=== PATIENT | female | born 1960 | race Caucasian/White ===

== ENCOUNTER 2023-12-22 11:03 | Inpatient (IN) | payer OTHER ==
[2023-12-22] VITALS (24 sets, daily range): BP systolic 99–139; BP diastolic 73–112
[~2023-12-22] VITALS: Ht 170.2 cm; Wt 93.5 kg
[2023-12-22 11:49] LABS: BASOPHILS ABSOLUTE AUTO 0.06 K/mm3 (0.00-0.23); BASOPHILS PERCENT AUTO 1 % (0-2); EOSINOPHILS ABSOLUTE AUTO 0.13 K/mm3 (0.00-0.68); EOSINOPHILS PERCENT AUTO 2 % (0-6); Hematocrit 42.9 % (33.0-51.0); Hemoglobin 15.2 g/dL (11.5-16.0); IMMATURE GRAN ABSOLUTE AUTO 0.02 K/mm3 (0.00-0.10); IMMATURE GRAN PERCENT AUTO 0 % (0-1); LYMPHOCYTES ABSOLUTE AUTO 1.93 K/mm3 (0.84-5.20); LYMPHOCYTES PERCENT AUTO 25 % (21-46); MONOCYTES ABSOLUTE AUTO 0.57 K/mm3 (0.16-1.47); MONOCYTES PERCENT AUTO 7 % (4-13); Mean Corpuscular HGB 32.3 pg (26.0-34.0); Mean Corpuscular HGB Conc 35.4 g/dL (31.5-36.5); Mean Corpuscular Volume 91 fL (80-100); Mean Platelet Volume 10.8 fL (9.1-12.4); NEUTROPHILS ABSOLUTE AUTO 5.17 K/mm3 (1.96-9.15); NEUTROPHILS PERCENT AUTO 66 % (41-73); Platelet Count 190 K/mm3 (150-400); RDW Coefficient Variation 12.1 % (11.7-14.2); RDW Standard Deviation 39.7 fL (35.1-46.3); Red Blood Cell Count 4.71 M/mm3 (3.80-5.20); White Blood Cell Count 7.88 K/mm3 (4.00-11.30)
[2023-12-22 12:19] LABS: Albumin, Blood 4.2 g/dL (3.4-5.0); Albumin/Globulin Ratio 1.2 (0.8-1.8); Bilirubin, Total 1.3 mg/dL (0.1-1.0); Bun/Creatinine Ratio 23.3 (12.0-20.0); Calcium, Blood 9.4 mg/dL (8.5-10.1); Creatinine, Blood 0.9 mg/dL (0.40-1.00); Globulin, Blood 3.5 g/dL (2.2-4.0); Potassium, Blood 3.5 mmol/L (3.5-5.5); Total Protein, Blood 7.7 g/dL (6.4-8.2)
[2023-12-22 13:45] LABS: International Normalized Ratio 1.07; Prothrombin Time Results 11.4 Sec (9.7-11.5)
[2023-12-22 14:10] LABS: Anti-Xa UFH, PHA Monitoring <0.10 IU/mL
[2023-12-22] MEDS ORDERED: AMPDEX30CR (14:40)
[2023-12-22] MEDS ORDERED: ACYC400 PO (14:40)
[2023-12-22] MEDS ORDERED: LISI20 PO (14:40)
[2023-12-22] MEDS ORDERED: Crestor40 MG PO (14:41)
[2023-12-22] MEDS ORDERED: Heparin Sodium 10,000 Units/ML 1ML MDV IV ONE (15:00)
[2023-12-22] MEDS ORDERED: Heparin Sodium,Porcine/0.5 NS 500 ML IV SCH (15:00)
[2023-12-22] MEDS ORDERED: Acetaminophen 500 MG Tab PO PRN (15:25)
[2023-12-22] MEDS ORDERED: FLU VACC TS2024-25(6MOS UP)/PF 45 MCG/0.5 ML SYRINGE IM PRN (15:25)
[2023-12-22] MEDS ORDERED: Polyethylene Glycol 3350 17 gm PO PRN (15:25)
[2023-12-22] MEDS ORDERED: Benzocaine Oral Spray 0.5ML UD ONE (17:19)
--- NOTE | 2023-12-22 17:58 | NUR ---
PT ARRIVAL... PT ARRIVED TO THE UNIT AT 1720, PT IS A&Ox4. PT'S VS STABLE AT THIS TIME SHE IS IN SR/ST 90'S-100'S BP STABLE WITH MAPS>65. L/S CLEAR AND DIM T/O ON RA WITH O2 SATS>90%. PT DENIES CHEST PAIN/PRESSURE N/V OR SOB. NO SWELLING OR EDEMA IS NOTED ON THIS ASSESSMENT. PLANS FOR BEDSIDE ANNETTE WITH ANS. CONSULTING PRACTICE DIRECTOR AND [employer] CONSULTANT AT THE BEDSIDE TO ASSESS THE PT. WILL CONTINUE TO MONITOR.
[2023-12-22] MEDS ORDERED: Lidocaine HCl 4% 5 ML SDA XX ONE (18:05)
[2023-12-22] MEDS ORDERED: NS 500 ML IV ONE ×2 (18:07→18:10)
[2023-12-22 20:22] LABS: Influenza A, PCR NEGATIVE (NEGATIVE); Influenza B, PCR NEGATIVE (NEGATIVE); Resp Syncytial Virus, PCR NEGATIVE (NEGATIVE); SARS-Cov-2 (COVID-19) PCR, MMC NEGATIVE (NEGATIVE)
[2023-12-22 20:32] LABS: BASOPHILS ABSOLUTE AUTO 0.05 K/mm3 (0.00-0.23); BASOPHILS PERCENT AUTO 1 % (0-2); EOSINOPHILS ABSOLUTE AUTO 0.06 K/mm3 (0.00-0.68); EOSINOPHILS PERCENT AUTO 1 % (0-6); Hematocrit 39.9 % (33.0-51.0); Hemoglobin 14.6 g/dL (11.5-16.0); IMMATURE GRAN ABSOLUTE AUTO 0.02 K/mm3 (0.00-0.10); IMMATURE GRAN PERCENT AUTO 0 % (0-1); LYMPHOCYTES ABSOLUTE AUTO 1.46 K/mm3 (0.84-5.20); LYMPHOCYTES PERCENT AUTO 18 % (21-46); MONOCYTES ABSOLUTE AUTO 0.33 K/mm3 (0.16-1.47); MONOCYTES PERCENT AUTO 4 % (4-13); Mean Corpuscular HGB Conc 36.6 g/dL (31.5-36.5); Mean Corpuscular Volume 90 fL (80-100); Mean Platelet Volume 10.6 fL (9.1-12.4); NEUTROPHILS PERCENT AUTO 77 % (41-73); Platelet Count 157 K/mm3 (150-400); RDW Coefficient Variation 12.2 % (11.7-14.2); RDW Standard Deviation 39.4 fL (35.1-46.3); Red Blood Cell Count 4.43 M/mm3 (3.80-5.20); White Blood Cell Count 8.22 K/mm3 (4.00-11.30)
[2023-12-22 20:55] LABS: Albumin, Blood 3.5 g/dL (3.4-5.0); Albumin/Globulin Ratio 1.1 (0.8-1.8); Bun/Creatinine Ratio 23.9 (12.0-20.0); Calcium, Blood 9.1 mg/dL (8.5-10.1); Creatinine, Blood 0.71 mg/dL (0.40-1.00); Globulin, Blood 3.2 g/dL (2.2-4.0); Magnesium, Blood 1.8 mg/dL (1.6-2.4); Phosphorus, Blood 2.8 mg/dL (2.5-4.9); Potassium, Blood 3.5 mmol/L (3.5-5.5); Total Protein, Blood 6.7 g/dL (6.4-8.2)
[2023-12-22] MEDS ORDERED: Docusate Sodium/Senna 1 Tab PO SCH (21:00)
[2023-12-22 21:48] LABS: Source, Urine Foley catheter
[2023-12-22] MEDS ORDERED: Etomidate 2MG / ML 10ML Vial XX ONE (21:51)
[2023-12-22] MEDS ORDERED: Propofol 10mg/ml 20 ml Vial (Procedural) IV ONE (21:51)
[2023-12-22] MEDS ORDERED: Midazolam HCl 1MG / ML 2ML Vial XX ONE (21:51)
[2023-12-22 21:52] LABS: Bilirubin, Urine Neg (Neg); Blood, Urine 1+ (Neg); Glucose Qualitative, Urine 3+ (Neg); Ketones, Urine 4+ (Neg); Leukocyte Esterase, Urine 1+ (Neg); Nitrite, Urine Neg (Neg); Protein, Urine 2+ (Neg); Urobilinogen, Urine 2+ (Normal)
--- NOTE | 2023-12-22 22:00 | NUR ---
ASSUMED CARE AT 1900 ANNETTE COMPLETED BEFORE SHIFT CHANGE. PT IS A/O X4 AND IN HIGH SPIRITS FOR THE CURRENT SITUATION; SHE HAS BEEN INFORMING FAMILY OF HER TRANSFER UP TO [place]. NO C/O DYSPNEA OR CHEST PAIN. SHE WAS PLACED ON 2L NC D/T SPO2 READING 88-89%; NOW SPO2 90-95%. AFEBRILE. NSR WITH RATE 90'S. SBP 110-130'S. TOLERATING SIPS OF WATER AND BROTH, NO C/O N/V. [place] PLACED AND DRAINING TO GRAVITY. HEPARIN INFUSING AT 18UNITS/KG/HR. SEE SHIFT ASSESSMENT FOR FULL ASSESSMENT. PT SON ISI UPDATED ABOUT PT CURRENT SITUATION. HE IS FLYING TO [place] NOW. HE IS TEARFUL AND ANXIOUS ON THE PHONE BUT APPRECIATIVE TO STAFF. DINAH NUMBER [phone].
[2023-12-22 22:07] LABS: Appearance, Urine Hazy (Clear); Color, Urine Yellow (P-Yellow)
[2023-12-22 22:10] LABS: Bacteria Mod /hpf; Red Blood Cells, Urine 0-2 /hpf (0-2); Squamous Epithelial Cells Mod /hpf (Few)
[2023-12-22] MEDS ORDERED: Mag Sulfate 1 GM/D5% 100ML 100 ML IV STA (22:12)
[2023-12-22] MEDS ORDERED: Potassium Chl 20MEQ/Water100ML 100 ML IV ONE (22:15)
[2023-12-22] MEDS ORDERED: Dose Adjust by Pharmacy XX STA (23:11)
[2023-12-23] VITALS (13 sets, daily range): BP systolic 92–139; BP diastolic 68–98
[2023-12-23] MEDS ORDERED: Insulin Regular 100 UNIT/ML 10ML Vial SC SCH
--- NOTE | 2023-12-23 02:50 | NUR ---
TRANSFER TO [facility] PT LEFT WITH [facility] ([facility]) AT 0237. ALL PERSONAL BELONGINGS TAKEN INCLUDING HER PURSE, CLOTHS, AND CELL PHONE. HEPARIN INFUSING AT 18U/KG/HR; PUMP SENT WITH [facility]. PT A/O X4 AT TIME OF TRANSFER. SPO2 >90% ON 2L NC. HR 80'S. BP STABLE. CALL MADE TO NANCI AT [facility] AND WAS GIVEN REPORT BY THIS RN. CALL MADE TO PT BRYAN SNOWDEN UPDATING TRANSFER.
[2023-12-23] MEDS ORDERED: Pantoprazole Sodium 40 MG Tab PO SCH (06:00)
== END 2023-12-23 02:37 | disposition short-term general hospital (02) | DRG 176 ==
LOC: ER 11:03 → ICUE 15:21
PROVIDERS: Physician Assistant; Student in an Organized Health Care Education/Training Program; ADMIT Internal Medicine
DX: I26.99 Other pulmonary embolism without acute cor pulmonale (principal); Q21.10 Atrial septal defect, unspecified; I82.409 Acute embolism and thrombosis of unspecified deep veins of unspecified lower extremity; I51.3 Intracardiac thrombosis, not elsewhere classified; I10 Essential (primary) hypertension; Z90.710 Acquired absence of both cervix and uterus; Z98.890 Other specified postprocedural states; Z88.0 Allergy status to penicillin; Z88.8 Allergy status to other drugs, medicaments and biological substances; Z79.899 Other long term (current) drug therapy
CPT/HCPCS: 0241U; 36415; 51702; 71260; 80053; 81001; 82947; 83735; 83880; 84100; 84484; 85025; 85379; 85520; 85610; 85730; 93005; 93010; 93306; 93312; 93325; 93970; 99285-25; A9270; C1751; J1644; J1815; J2003; J2250; J2704; J3475; J3480; J7040; Q9967